=== PATIENT | female | born 1935 | race Caucasian/White ===

== ENCOUNTER 2017-09-17 10:45 | Day surgery (SDC) | payer OTHER ==
[2017-09-15 11:31] LABS: ALANINE AMINOTRANSFERASE 103 U/L (12-78); ALBUMIN 3.5 g/dL (3.4-5.0); ANION GAP 7 mmol/L (5-15); CALCIUM 8.8 mg/dL (8.5-10.1); CHLORIDE 104 mmol/L (98-107); CREATININE 0.83 mg/dL (0.55-1.02)
[2017-09-15 11:33] LABS: ALKALINE PHOSPHATASE 65 U/L (45-117); BILIRUBIN,TOTAL 0.7 mg/dL (0.2-1.0); TOTAL PROTEIN 7.4 g/dL (6.4-8.2)
[~2017-09-17] VITALS: Ht 149.9 cm; Wt 70.7 kg
[~2017-09-17 10:45] MED LIST: APIX2.5T PO; DIPH1TAB PO; LOSA25TA5 PO; MAGNESIUM PO; MESA0.372 PO; MULT-516 PO; MV-M1TAB16 PO
[2017-09-17] MEDS ORDERED: SIMV40TA3 PO (11:16)
[2017-09-17] MEDS ORDERED: 6MP PO (11:16)
[2017-09-17] MEDS ORDERED: CARV3.122 PO (11:16)
[2017-09-17 11:19] VITALS: BP 150/84
[2017-09-17] MEDS: FENTANYL PF 100 MCG/2ML IV PRN (13:19)
[2017-09-17] MEDS ORDERED: FENTANYL PF 100 MCG/2ML ONE (13:22)
[2017-09-17] MEDS ORDERED: ONDANSETRON ODT 8 MG PO PRN (13:30)
[2017-09-17] MEDS ORDERED: PROPOFOL 10 MG/ML, 50ML ONE (15:35)
== END 2017-09-17 14:35 ==
LOC: OUT 10:45
PROVIDERS: ATTEND Internal Medicine
DX: K56.699 Other intestinal obstruction unspecified as to partial versus complete obstruction (principal); K50.90 Crohn's disease, unspecified, without complications
CPT/HCPCS: 36415; 45380; 45386; 80053; 88305; 93005; C1725; J2704; J3010

== ENCOUNTER 2018-11-16 06:24 | Day surgery (SDC) | payer MEDICARE ==
[~2018-11-16] VITALS: Ht 152.4 cm; Wt 75.9 kg
[2018-11-16 07:04] VITALS: BP 160/100
== END 2018-11-16 11:35 | disposition home or self-care (01) ==
LOC: OUT 06:24 → EDSTATUS 08:00 → OUT 11:35
PROVIDERS: ATTEND Internal Medicine
DX: E83.119 Hemochromatosis, unspecified (principal); I10 Essential (primary) hypertension; E78.00 Pure hypercholesterolemia, unspecified; G62.9 Polyneuropathy, unspecified; K51.90 Ulcerative colitis, unspecified, without complications; E66.9 Obesity, unspecified; Z68.33 Body mass index [BMI] 33.0-33.9, adult; Z72.89 Other problems related to lifestyle; Z79.01 Long term (current) use of anticoagulants; Z79.899 Other long term (current) drug therapy; Z87.891 Personal history of nicotine dependence; Z80.0 Family history of malignant neoplasm of digestive organs; Z84.1 Family history of disorders of kidney and ureter; Z82.49 Family history of ischemic heart disease and other diseases of the circulatory system
CPT/HCPCS: 36415; 47000; 76942; 85610; 88307; 88313; 99156; 99157; J2250; J3010; J7030; J2310